=== PATIENT | female | born 1995 | race Two or more races ===

== ENCOUNTER 2019-04-21 16:47 | Emergency (ER) | payer MEDICAID, OTHER ==
[~2019-04-21] VITALS: Ht 157.5 cm; Wt 59.3 kg
[2019-04-21] MEDS ORDERED: SULFAMETH./TRIMETHOPRIM DS 800MG/160MG TABLET ONE (17:50)
[2019-04-21] MEDS ORDERED: CEPHALEXIN 500 MG CAPSULE ONE (17:50)
[2019-04-21] MEDS ORDERED: DIPH,PERTUSS(ACELL),TET VAC/PF 0.5 ML IM-VACC ONE ×2 (17:51→18:00)
[2019-04-21] MEDS ORDERED: SULFAMETH./TRIMETHOPRIM DS 800MG/160MG TABLET PO ONE (18:00)
[2019-04-21] MEDS ORDERED: CEPHALEXIN 500 MG CAPSULE PO ONE (18:00)
[2019-04-21 18:19] VITALS: BP 112/61
== END 2019-04-21 18:21 | disposition home or self-care (01) ==
LOC: ED 18:15
DX: S51.842A Puncture wound with foreign body of left forearm, initial encounter (principal); F17.200 Nicotine dependence, unspecified, uncomplicated; X58.XXXA Exposure to other specified factors, initial encounter; Y93.89 Activity, other specified; Y92.89 Other specified places as the place of occurrence of the external cause; Y99.8 Other external cause status
CPT/HCPCS: 90471; 90715; 99283